=== PATIENT | male | born 1995 | race Caucasian/White ===

== ENCOUNTER 2017-02-15 16:03 | Emergency (ER) | payer SELFPAY ==
[2017-02-15 16:15] VITALS: BP 152/82; BMI 20.7
--- NOTE | 2017-02-15 17:14 | DR.URIAD ---
HPI - PCP Primary Care Physician: NFD - Complaint Chief Complaint:: PT C/O CCC, CAPPS FROM COUGHING AND ACHING ALL OVER SINCE FRIDAY,, PT DENIES FEVER ,,,, Self Treatment fo Chief Complaint: OTC COLD MEDS - Reviewed Nurses Notes Reviewed: Yes - Source History Provided: Patient - Mode of Arrival Mode of Arrival: Ambulatory - Timing Onset of Chief Complaint: 02/12/17 PMH - PMH Past Medical History: No Past Surgical History: Yes Surgical History: Appendectomy - Family History History of Family Medical Conditions: Yes Family Medical History: Cancer - Social History Does patient currently use any type of tobacco product: No Have you used tobacco products in the last 12 months: No Type of Tobacco Use: None Does any household member use tobacco: No Alcohol Use: None Do you use any recreational Drugs:: No Lives With: Family Lives Where: Home - infectious screening In the last 2 months have you had wt loss of >10#?: NO Have you had fever, night sweats or hemotysis?: No Have you traveled outside the country in the last 6 months?: No Isolation: Standard PE - Vital Signs Vitals: Temperature 99.8 F Pulse Rate 88 Respiratory Rate 18 Blood Pressure 152/82 O2 Sat by Pulse Oximetry 96 ROR - Labs Reviewed Result Diagrams: 02/15/17 17:21 02/15/17 17:21 Laboratory: WBC 4.6 X10^3/uL (3.6-10.0) 02/15/17 17:21 RBC 5.32 X10^6/uL (4.7-6.0) 02/15/17 17:21 Hgb 16.8 g/dL (13.5-18.0) 02/15/17 17:21 Hct 48.7 % (42.0-54.0) 02/15/17 17:21 MCV 91.5 fL (80.0-100.0) 02/15/17 17:21 MCH 31.7 pg (27.0-34.0) 02/15/17 17:21 MCHC 34.6 g/dL (33.0-35.0) 02/15/17 17:21 RDW 13.0 % (11.6-16.5) 02/15/17 17:21 Plt Count 224 X10^3/uL (150.0-450.0) 02/15/17 17:21 MPV 9.2 fL (7.4-11.0) 02/15/17 17:21 Neut % 64.9 % (42.0-75.0) 02/15/17 17:21 Lymph % 17.9 % (21.0-51.0) L 02/15/17 17:21 [place] % 14.9 % (0.0-13.0) H 02/15/17 17:21 Eos % 1.7 % (0.9-2.9) 02/15/17 17:21 Baso % 0.6 % (0.2-1.0) 02/15/17 17:21 Neut # 3.0 x10^3/uL (2.2-4.8) 02/15/17 17:21 Lymph # 0.8 X10^3/uL (1.3-2.9) L 02/15/17 17:21 [place] # 0.7 x10^3/uL (0.3-0.8) 02/15/17 17:21 Eos # 0.1 x10^3/uL (0.0-0.2) 02/15/17 17:21 Baso # 0.0 X10^3/uL (0.0-0.1) 02/15/17 17:21 Absolute Nucleated RBC 0.1 /100WBC 02/15/17 17:21 Influenza Type A (PCR) Positive (NEGATIVE) A 02/15/17 16:40 Influenza Type B (PCR) Negative (NEGATIVE) 02/15/17 16:40 - Discharge Plan Condition: Stable Prescriptions: Doxycycline Hyclate 100 mg PO BID #20 tablet. Oseltamivir Phosphate [Tamiflu] 75 mg PO BID #10 cap Promethazine W/Codeine [PHENERGAN W/CODEINE 6.25mg/10mg (5mL) *] 5 ml PO Q6H PRN #120 ml PRN Reason: Cough - Follow ups/Referrals Follow ups/Referrals: NFD,None [Primary Care Provider] - 3 days - Instructions Instructions: Influenza, Adult, [id number], Acute Bronchitis, [id number], Sinusitis, Adult, [id number] Additional Instructions: RETURN TO ED IF WORSE.
[2017-02-15 17:32] LABS: BASOPHILS % (AUTO) 0.6 % (0.2-1.0); EOSINOPHILS # (AUTO) 0.1 x10^3/uL (0.0-0.2); EOSINOPHILS % (AUTO) 1.7 % (0.9-2.9); HEMATOCRIT 48.7 % (42.0-54.0); HEMOGLOBIN 16.8 g/dL (13.5-18.0); LYMPHOCYTES # (AUTO) 0.8 X10^3/uL (1.3-2.9); LYMPHOCYTES % (AUTO) 17.9 % (21.0-51.0); MEAN CORPUSCULAR HEMOGLOBIN 31.7 pg (27.0-34.0); MEAN CORPUSCULAR HGB CONC 34.6 g/dL (33.0-35.0); MEAN CORPUSCULAR VOLUME 91.5 fL (80.0-100.0); MEAN PLATELET VOLUME 9.2 fL (7.4-11.0); MONOCYTES # (AUTO) 0.7 x10^3/uL (0.3-0.8); MONOCYTES % (AUTO) 14.9 % (0.0-13.0); NEUTROPHILS % (AUTO) 64.9 % (42.0-75.0); PLATELET COUNT 224 X10^3/uL (150.0-450.0); RED BLOOD COUNT 5.32 X10^6/uL (4.7-6.0); WHITE BLOOD COUNT 4.6 X10^3/uL (3.6-10.0)
--- NOTE | 2017-02-15 17:55 | RAD ---
HISTORY: Cough and chest pain Study: Two-view chest Comparison: None Findings: The trachea is midline. The cardiac silhouette is unremarkable. The lungs are clear without focal i nfiltrate or effusion. The bony thorax is unremarkable. IMPRESSION: 1. No acute cardiopulmonary disease. Reported By:
[2017-02-15 18:14] LABS: ALANINE AMINOTRANSFERASE 58 Units/L (12-78); ALKALINE PHOSPHATASE 137 Units/L (46-116); ASPARTATE AMINO TRANSFERASE 41 Units/L (15-37); BLOOD UREA NITROGEN 10 mg/dL (7-18); CALCIUM 8.3 mg/dL (8.5-10.1); CARBON DIOXIDE 27.4 mmol/L (21-32); CHLORIDE 101 mmol/L (98-107); CREATININE 1.41 mg/dL (0.70-1.30); SODIUM 137 mmol/L (136-145); TOTAL PROTEIN 8.1 g/dL (6.4-8.2); eGFR BLACK RACES > 60 (>60); eGFR NON BLACK RACES > 60 (>60)
== END 2017-02-15 18:07 | disposition home or self-care (01) ==
LOC: ER 16:03
DX: J11.1 Influenza due to unidentified influenza virus with other respiratory manifestations (principal); J20.9 Acute bronchitis, unspecified; J32.9 Chronic sinusitis, unspecified
CPT/HCPCS: 36415; 71020; 80053; 85025; 87502; 99282; 99283